=== PATIENT | male | born 1990 | race American Indian/Alaskan Native ===

== ENCOUNTER 2019-05-27 21:14 | Emergency (ER) | payer SELFPAY ==
[2019-05-27] MEDS ORDERED: SODIUM CHLORIDE 0.9% 1000 ML 1,000 ML ONE (21:56)
[2019-05-27] MEDS ORDERED: ONDANSETRON 4 MG/2 ML INJ ONE (22:00)
[2019-05-27] MEDS: SODIUM CHLORIDE 0.9% 500 ML 1,000 ML IV ONE (22:03)
[2019-05-27 22:37] LABS: Hematocrit 49.4 % (35.5-45.6); Hemoglobin 16.4 gm/dl (11.8-15.2); Mean Corpuscular HGB Conc 33 % (32-34); Mean Corpuscular Volume 85 fl (84-94); Platelet Count 179 K/mm3 (140-440); Red Blood Count 5.79 M/mm3 (3.65-5.03); Red Cell Distribution Width 13.7 % (13.2-15.2)
[2019-05-27 22:49] LABS: INR 0.99 (0.87-1.13)
[2019-05-27] MEDS: DICYCLOMINE 20 MG/2 ML INJ IM ONE (22:49)
[2019-05-27] MEDS: MORPHINE 4 MG/1 ML INJ IV ONE (22:49)
[2019-05-27] MEDS: SODIUM CHLORIDE 0.9% 1000 ML 1,000 ML IV ONE (22:50)
[2019-05-27] MEDS: ONDANSETRON 4 MG/2 ML INJ IV ONE (22:50)
[2019-05-27] MEDS: FAMOTIDINE 20 MG/2 ML INJ IV ONE (22:50)
[2019-05-27 22:57] LABS: Albumin 4.8 g/dL (3.9-5); BUN/Creatinine Ratio 15; Blood Urea Nitrogen 12 mg/dL (9-20); Calcium 9.9 mg/dL (8.4-10.2); Hemolysis Index 281
[2019-05-27 23:07] LABS: Alanine Aminotransferase 36 units/L (7-56)
[2019-05-28] MEDS: MORPHINE 4 MG/1 ML INJ IV ONE (00:26)
--- NOTE | 2019-05-28 00:26 | Emergency Department Report ---
ED Abdominal Pain HPI - General Chief Complaint: Abdominal Pain Stated Complaint: ABD PAIN Time Seen by Provider: 05/27/19 22:12 Source: patient, EMS Mode of arrival: Stretcher Limitations: No Limitations - History of Present Illness Initial Comments: Patient is a 29-year-old male who has had approximate 4 days of nausea vomiting diarrhea. Patient states that started out as a bloating sensation with some mild nausea and mild diarrhea however over the last 24 hours is worsened. Patient states he cannot count how he denies any diarrhea or vomited. He denies any hematochezia or hematemesis. States that the vomitus bilious in nature. States he's had decreased urinary output. crampy mid abdominal pain is 8 out of 10 in severity. He has probable chills and fever. Severity scale (0 -10): 8 - Related Data Previous Rx's Medication Instructions Recorded Last Taken Type Dicyclomine [Bentyl] 20 mg PO QID #10 tablet 05/28/19 Unknown Rx Diphenoxylate/Atropine [Lomotil] 1 tab PO Q4H PRN #8 tablet 05/28/19 Unknown Rx Famotidine [Pepcid] 40 mg PO QHS #10 tablet 05/28/19 Unknown Rx Ondansetron [Zofran Odt] 4 mg PO Q8HR #10 tab.rapdis 05/28/19 Unknown Rx traMADoL [Ultram] 50 mg PO Q6HR PRN #10 tablet 05/28/19 Unknown Rx Allergies Allergy/AdvReac Type Severity Reaction Status Date / Time No Known Allergies Allergy Unverified 05/27/19 21:46 ED Review of Systems ROS: Stated complaint: ABD PAIN Other details as noted in HPI Comment: All other systems reviewed and negative ED Past Medical Hx - Past Medical History Previous Medical History?: Yes Additional medical history: DVT treated w/ eliquis - Surgical History Past Surgical History?: No - Social History Smoking Status: Never Smoker Substance Use Type: Alcohol, Marijuana - Medications Home Medications: Home Medications Medication Instructions Recorded Confirmed Last Taken Type Dicyclomine [Bentyl] 20 mg PO QID #10 tablet 05/28/19 Unknown Rx Diphenoxylate/Atropine [Lomotil] 1 tab PO Q4H PRN #8 tablet 05/28/19 Unknown Rx Famotidine [Pepcid] 40 mg PO QHS #10 tablet 05/28/19 Unknown Rx Ondansetron [Zofran Odt] 4 mg PO Q8HR #10 tab.rapdis 05/28/19 Unknown Rx traMADoL [Ultram] 50 mg PO Q6HR PRN #10 tablet 05/28/19 Unknown Rx ED Physical Exam - General Limitations: No Limitations General appearance: alert, anxious, in distress - Head Head exam: Present: atraumatic, normocephalic - Eye Eye exam: Present: normal appearance - ENT ENT exam: Present: mucous membranes moist - Neck Neck exam: Present: normal inspection - Respiratory Respiratory exam: Present: normal lung sounds bilaterally. Absent: respiratory distress, wheezes, rales - Cardiovascular Cardiovascular Exam: Present: regular rate, normal rhythm, normal heart sounds. Absent: systolic murmur, diastolic murmur, rubs, gallop - GI/Abdominal GI/Abdominal exam: Present: soft, tenderness (diffuse), normal bowel sounds. Absent: distended, guarding, rebound - Rectal Rectal exam: Present: deferred - Extremities Exam Extremities exam: Present: normal inspection - Back Exam Back exam: Present: normal inspection - Neurological Exam Neurological exam: Present: alert, oriented X3 - Psychiatric Psychiatric exam: Present: normal affect, normal mood - Skin Skin exam: Present: warm, dry, intact, normal color. Absent: rash ED Course Vital Signs 05/27/19 05/27/19 21:41 23:47 Temperature 98.6 F Pulse Rate 68 Respiratory 18 15 Rate Blood Pressure 122/68 Blood Pressure 128/73 [Left] O2 Sat by Pulse 100 Oximetry ED Medical Decision Making - Lab Data Result diagrams: 05/27/19 22:04 05/27/19 22:04 Lab Results 05/27/19 05/27/19 05/27/19 Range/Units 22:04 22:04 22:04 WBC 18.9 H (4.5-11.0) K/mm3 RBC 5.79 H (3.65-5.03) M/mm3 Hgb 16.4 H (11.8-15.2) gm/dl Hct 49.4 H (35.5-45.6) % MCV 85 (84-94) fl MCH 28 (28-32) pg MCHC 33 (32-34) % RDW 13.7 (13.2-15.2) % Plt Count 179 (140-440) K/mm3 Add Manual Diff Complete Total Counted 100 Seg Neutrophils % Grain Manager Seg Neuts % (Manual) 88.0 H (40.0-70.0) % Band Neutrophils % 0 % Lymphocytes % (Manual) 7.0 L (13.4-35.0) % Reactive Lymphs % (Man) 0 % Monocytes % (Manual) 5.0 (0.0-7.3) % Eosinophils % (Manual) 0 (0.0-4.3) % Basophils % (Manual) 0 (0.0-1.8) % Metamyelocytes % 0 % Myelocytes % 0 % Promyelocytes % 0 % Blast Cells % 0 % Nucleated RBC % Not Reportable Seg Neutrophils # Man 16.6 H (1.8-7.7) K/mm3 Band Neutrophils # 0.0 K/mm3 Lymphocytes # (Manual) 1.3 (1.2-5.4) K/mm3 Abs React Lymphs (Man) 0.0 K/mm3 Monocytes # (Manual) 0.9 H (0.0-0.8) K/mm3 Eosinophils # (Manual) 0.0 (0.0-0.4) K/mm3 Basophils # (Manual) 0.0 (0.0-0.1) K/mm3 Metamyelocytes # 0.0 K/mm3 Myelocytes # 0.0 K/mm3 Promyelocytes # 0.0 K/mm3 Blast Cells # 0.0 K/mm3 WBC Morphology Not Reportable Hypersegmented Neuts Not Reportable Hyposegmented Neuts Not Reportable Hypogranular Neuts Not Reportable Smudge Cells Not Reportable Toxic Granulation Not Reportable Toxic Vacuolation Not Reportable Dohle Bodies Not Reportable Pelger-Huet Anomaly Not Reportable Dagmar Rods Not Reportable Platelet Estimate Consistent w auto Clumped Platelets Not Reportable Plt Clumps, EDTA Not Reportable Large Platelets Not Reportable Giant Platelets Not Reportable Platelet Satelliting Not Reportable Plt Morphology Comment Not Reportable RBC Morphology Not Reportable Dimorphic RBCs Not Reportable Polychromasia Not Reportable Hypochromasia Not Reportable Poikilocytosis Not Reportable Anisocytosis 1+ Microcytosis Not Reportable Macrocytosis Not Reportable Spherocytes Not Reportable Pappenheimer Bodies Not Reportable Sickle Cells Not Reportable Target Cells Not Reportable Tear Drop Cells Not Reportable Ovalocytes Not Reportable Helmet Cells Not Reportable [place] Bodies Not Reportable [place] Rings Not Reportable Demarcus Cells Not Reportable Bite Cells Not Reportable Crenated Cell Not Reportable Elliptocytes Not Reportable Acanthocytes (Spur) Not Reportable Rouleaux Not Reportable Hemoglobin C Crystals Not Reportable Schistocytes Not Reportable Malaria parasites Not Reportable Andrés Bodies Not Reportable Hem Pathologist Commnt No PT 13.2 (12.2-14.9) Sec. INR 0.99 (0.87-1.13) Sodium 137 (137-145) mmol/L Potassium 5.3 H (3.6-5.0) mmol/L Chloride 99.0 (98-107) mmol/L Carbon Dioxide 21 L (22-30) mmol/L Anion Gap 22 mmol/L BUN 12 (9-20) mg/dL Creatinine 0.8 (0.8-1.5) mg/dL Estimated GFR > 60 ml/min BUN/Creatinine Ratio 15 % Glucose 122 H (75-100) mg/dL Calcium 9.9 (8.4-10.2) mg/dL Total Bilirubin 1.20 (0.1-1.2) mg/dL AST 38 (5-40) units/L ALT 36 (7-56) units/L Alkaline Phosphatase 59 (35-129) units/L Total Protein 8.2 (6.3-8.2) g/dL Albumin 4.8 (3.9-5) g/dL Albumin/Globulin Ratio 1.4 % - Radiology Data Ordering Physician: BRANDO EDWARDS MD Date of Service: 05/27/19 Procedure(s): CT abdomen pelvis w con Accession Number(s): [id number] cc: BRANDO EDWARDS MD CT abdomen pelvis w con INDICATION: severe NVD w abd pain. TECHNIQUE: All CT scans at this location are performed using the following dose modulation technique: Automated exposure control. Helical slices were obtained through the abdomen and pelvis following the administration of 100 cc of Omnipaque 300 COMPARISON: None available. FINDINGS: Abdomen: No acute abnormality is seen in the lower chest. The liver, spleen, pancreas, adrenal glands, and kidneys show no acute abnormality. The aorta is normal in diameter. There is no obstruction, inflammation, or free air. There are no abnormal fluid collections. The appendix is unremarkable. Pelvis: There is some fluid noted in the small bowel and distal colon. There is no obstruction or inflammation. There are no abnormal fluid collections. On review of bone windows, no acute osseous abnormality is seen. IMPRESSION: 1. There is some fluid in the bowel raising possibility of an enteritis.. There is no obstruction, inflammation, or free air. Signer Name: Maico Jean MD Signed: 05/28/2019 12:54 AM Workstation Name: [email or web address] - Medical Decision Making Was hydrated given Bentyl as well as medications for nausea and pain. Patient's pain has improved. No surgical conditions were found on the patient's CT. Patient likely has a viral gastroenteritis. Patient be discharged home with medication for symptomatic relief. Critical care attestation.: If time is entered above; I have spent that time in minutes in the direct care of this critically ill patient, excluding procedure time. ED Disposition Clinical Impression: Viral gastroenteritis, Mild dehydration Disposition: DC-01 TO HOME OR SELFCARE Is pt being admited?: No Does the pt Need Aspirin: No Condition: Stable Instructions: Gastroenteritis (ED) Referrals: PRIMARY CARE, [Primary Care Provider] - 3-5 Days Time of Disposition: 01:13
[2019-05-28 00:43] LABS: Anisocytosis 1+; Basophils % (Manual) 0 % (0.0-1.8); Eosinophils % (Manual) 0 % (0.0-4.3); Total Cells Counted 100
[2019-05-28 00:48] LABS: Platelet Estimate Consistent w Auto
--- NOTE | 2019-05-28 00:59 | Cat Scan Report ---
CT abdomen pelvis w con INDICATION: severe NVD w abd pain. TECHNIQUE: All CT scans at this location are performed using the following dose modulation technique: Automated exposure control. Helical slices were obtained through the abdomen and pelvis following the administr ation of 100 cc of Omnipaque 300 COMPARISON: None available. FINDINGS: Abdomen: No acute abnormality is seen in the lower chest. The liver, spleen, pancreas, adrenal glands , and kidneys show no acute abnormality. The aorta is normal in diameter. There is no obstruction, in flammation, or free air. There are no abnormal fluid collections. The appendix is unremarkable. Pelvis: There is some fluid noted in the small bowel and distal colon. There is no obstruction or inf lammation. There are no abnormal fluid collections. On review of bone windows, no acute osseous abnormality is seen. IMPRESSION: 1. There is some fluid in the bowel raising possibility of an enteritis.. There is no obstruction, in flammation, or free air. Signer Name: Maico Jean MD Signed: 05/28/2019 12:54 AM Workstation Name: [id number]
[2019-05-28 02:04] VITALS: BP 115/82
== END 2019-05-28 01:58 | disposition home or self-care (01) ==
LOC: ED 21:14
DX: A08.4 Viral intestinal infection, unspecified (principal); E86.0 Dehydration; F12.10 Cannabis abuse, uncomplicated; Z79.899 Other long term (current) drug therapy
CPT/HCPCS: 36415; 74177; 80053; 85007; 85025; 85610; 96361; 96372; 96374; 96375; 96376; 99284; J0500; J2270; J2405; J7030; Q9967